=== PATIENT | male | born 1980 | race African-American/Black ===

== ENCOUNTER → 2018-08-12 | Outpatient (CLI) | payer OTHER ==
--- NOTE | 2018-08-12 10:40 | REP ---
CT study of the chest without contrast: History: Nodular density left upper lobe. 5 x 6 mm nodular density identified in the left upper lobe. History of dyspnea. CT findings: There is a calcified granuloma in the superior segment of the left lower lobe. This measures 6 mm in greatest diameter. There are granulomatous calcified lymph node residuals in the left hilus, precarinal lymph nodes, and in a tiny superior mediastinal lymph node on the left side. There is another granulomatous calcification more inferiorly and medially in the right lower lobe as well. Lastly, there is a calcified granuloma in the right lower lobe medially and inferiorly. No noncalcified pulmonary nodule is appreciated. The lung dorsey are otherwise clear. No pleural or pericardial effusion is seen. No hilar or mediastinal mass or adenopathy is observed. Visualized upper abdominal structures are unremarkable. Impression: Old granulomatous calcifications. No active disease. Electronically Signed by Guillermo Salas MD 08/12/2018 03:34 P
== END ==
LOC: M RAD 07:55
PROVIDERS: ATTEND Physician Assistant Surgical
DX: J84.10 Pulmonary fibrosis, unspecified (principal)

== ENCOUNTER 2019-05-30 07:51 | Emergency (ER) | payer OTHER ==
[~2019-05-30] VITALS: Ht 172.7 cm; Wt 86.4 kg
[2019-05-30] MEDS ORDERED: PRAZ2CAP PO (08:04)
[2019-05-30] MEDS ORDERED: NITROGLYCERIN 0.4 MG SUBL TABLET SL PRN (08:45)
[2019-05-30] MEDS ORDERED: ASPIRIN 81 MG CHEW TABLET PO ONE (08:45)
[2019-05-30] MEDS ORDERED: NS 1,000 ML IV ONE ×2 (08:45→09:30)
[2019-05-30 08:55] LABS: BASO % 0.3 % (0.0-1.0); EOS % 0.2 % (0.0-3.0); HEMATOCRIT 46.8 % (42.0-52.0); HEMOGLOBIN 15.2 g/dl (13.5-17.5); LYMPH # 1.2 10^3/uL (1.5-5.0); LYMPH % 10.6 % (24.0-44.0); MEAN CORPUSCULAR HEMOGLOBIN 26.3 pg (27.0-33.0); MEAN CORPUSCULAR HGB CONC 32.5 g/dl (32.0-36.5); MEAN CORPUSCULAR VOLUME 80.8 fl (80.0-96.0); MONO # 0.3 10^3/uL (0.0-0.8); MONO % 2.5 % (0.0-5.0); NEUTROPHILS # 9.4 10^3/uL (1.5-8.5); NEUTROPHILS % 85.2 % (36.0-66.0); PLATELET COUNT, AUTOMATED 212 10^3/uL (150-450); RED BLOOD COUNT 5.79 10^6/uL (4.30-6.10)
[2019-05-30 08:58] VITALS: BP 112/68
[2019-05-30 09:14] LABS: ALBUMIN 4.6 GM/DL (3.2-5.2); BILIRUBIN,DIRECT 0.2 MG/DL (0.0-0.2); BILIRUBIN,TOTAL 0.8 MG/DL (0.2-1.0); CALCIUM LEVEL 9.6 MG/DL (8.5-10.1); CK-MB VALUE MASS 4.6 NG/ML (<3.6); CREATININE FOR GFR 1.97 MG/DL (0.70-1.30); FREE T4 0.89 NG/DL (0.76-1.46); GLOMERULAR FILTRATION RATE 49.3 (>60); MB/CK RELATIVE INDEX 0.47 (< OR =4); POTASSIUM SERUM 4.4 MEQ/L (3.5-5.1); THYROID STIMULATING HORMONE 1.52 uIU/ML (0.358-3.740); TOTAL PROTEIN 8.7 GM/DL (6.4-8.2); TROPONIN I 0.5 NG/ML (< 0.10)
[2019-05-30] MEDS ORDERED: GI COCKTAIL 50ML BTL(HYOSCYAMINE/MAALOX/LIDOCAINE VISCOUS)(1:3:1) PO ONE (09:15)
[2019-05-30] MEDS ORDERED: MORPHINE 2 MG/ML 1ML VIAL (J2270) IV ONE (09:15)
[2019-05-30] MEDS ORDERED: HEPARIN DRIP 25,000 UNITS in IV 1 EA IV SCH (09:21)
[2019-05-30] MEDS ORDERED: NS 1,000 ML IV SCH (09:21)
--- NOTE | 2019-05-30 09:21 | REP ---
Clinical: Chest pain . Comparison: None . Findings: The mediastinum and cardiac silhouette are stable and within normal limits for portable technique. The lung dorsey are clear without acute consolidation, effusion, or pneumothorax. Skeletal structures are intact. Impression: No acute cardiopulmonary process appreciated. Electronically Signed by Romaine Darnell MD 05/30/2019 09:13 A
[2019-05-30] MEDS ORDERED: HEPARIN SOD (PORCINE) 5000 UNITS/ML VIAL IV ONE (09:30)
[2019-05-30] MEDS ORDERED: CLOPIDOGREL 300 MG TAB (PLAVIX) PO ONE (09:30)
[2019-05-30] MEDS ORDERED: FAMOTIDINE 20 MG TAB PO ONE (09:30)
[2019-05-30 09:41] LABS: INR 1.06; PROTHROMBIN TIME 13.5 SECONDS (11.8-14.0)
[2019-05-30 10:03] VITALS: BP 117/73
--- NOTE | 2019-05-31 08:42 | ECGEPIP ---
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
== END 2019-05-30 10:06 | disposition short-term general hospital (02) ==
LOC: M ED 07:51 → EDBD 07:51 → M ED 10:06
DX: I21.4 Non-ST elevation (NSTEMI) myocardial infarction (principal); R06.02 Shortness of breath; Z79.899 Other long term (current) drug therapy